=== PATIENT | female | born 2000 | race African-American/Black ===

== ENCOUNTER 2023-05-28 22:20 | Emergency (ER) | payer SELFPAY ==
[~2023-05-28] VITALS: Ht 172.7 cm; Wt 70.0 kg
[2023-05-28] MEDS ORDERED: IBUP1TAB5 PO (22:32)
[2023-05-29] MEDS ORDERED: LIDOCAINE 1% MDV 20ML VIAL SC ONE (06:45)
[2023-05-29] MEDS ORDERED: IBUPROFEN 800 MG TAB PO ONE (07:40)
[2023-05-29] MEDS ORDERED: DOXY-443 PO (07:42)
[2023-05-29 07:54] VITALS: BP 118/72; TEMP 98.5; O2SAT 100
== END 2023-05-29 07:56 | disposition home or self-care (01) ==
LOC: M ED 22:20
DX: L02.411 Cutaneous abscess of right axilla (principal); Z88.0 Allergy status to penicillin; Z79.1 Long term (current) use of non-steroidal anti-inflammatories (NSAID); Z79.899 Other long term (current) drug therapy

== ENCOUNTER → 2024-11-28 | Outpatient (CLI) | payer OTHER ==
[~2024-11-28] MED LIST: DOXY-441 PO; IBUP1TAB5 PO
== END ==
LOC: M PLALAB 15:38
PROVIDERS: ATTEND Advanced Practice Midwife
DX: Z34.02 Encounter for supervision of normal first pregnancy, second trimester (principal)

== ENCOUNTER → 2025-02-09 | Outpatient (CLI) | payer OTHER | LOC: M WHC 12:10 | PROVIDERS: ATTEND Advanced Practice Midwife | DX: Z34.02 Encounter for supervision of normal first pregnancy, second trimester (principal) ==

== ENCOUNTER → 2025-03-09 | Outpatient (CLI) | payer OTHER ==
[2025-03-09 16:08] LABS: PLATELET COUNT, AUTOMATED 203 10^3/uL (150-450)
[2025-03-09 16:27] LABS: GLUCOSE CHALLENGE TEST 1 HOUR 96 MG/DL (LESS THAN 140)
[2025-03-09 17:03] LABS: HIV 1&2 SCREEN NEGATIVE (NEGATIVE)
[2025-03-09 17:10] LABS: HEPATITIS C VIRUS ABY INDEX < 0.02 INDEX (<0.8)
[2025-03-09 17:28] LABS: Trichomonas vaginalis (AMP) NOT DETECTED (NEGATIVE)
[2025-03-09 17:52] LABS: GC DNA AMPLIFICATION NEGATIVE (NEGATIVE)
== END ==
LOC: M PLALAB 12:53
PROVIDERS: ATTEND Student in an Organized Health Care Education/Training Program
DX: Z34.80 Encounter for supervision of other normal pregnancy, unspecified trimester (principal)

== ENCOUNTER → 2025-03-14 | Outpatient (CLI) | payer OTHER | LOC: M WHC 09:12 | PROVIDERS: ATTEND Student in an Organized Health Care Education/Training Program | DX: Z34.80 Encounter for supervision of other normal pregnancy, unspecified trimester (principal) ==

== ENCOUNTER → 2025-05-15 | Outpatient (REF) | payer OTHER | LOC: M PLALAB 05-14 16:06 | PROVIDERS: ATTEND Obstetrics & Gynecology | DX: Z34.93 Encounter for supervision of normal pregnancy, unspecified, third trimester (principal); Z3A.36 36 weeks gestation of pregnancy ==